=== PATIENT | male | born 1950 | race Caucasian/White ===

== ENCOUNTER 2022-01-14 12:22 | Outpatient (CLI) | payer MEDICARE ==
[2022-01-12 13:10] LABS: ALBUMIN 3.7 G/DL (3.4-5.0); ANION GAP 10 (8-16); BLOOD UREA NITROGEN 16 MG/DL (7-18); BUN/CREATININE RATIO 18.4 (5.4-32.0); CALCIUM 8.4 MG/DL (8.5-10.1); CHLORIDE 106 MMOL/L (99-107); CREATININE 0.87 MG/DL (0.60-1.10); GLUCOSE 99 MG/DL (70-104); SODIUM 145 MMOL/L (135-145); TOTAL CARBON DIOXIDE 29.2 MMOL/L (24-32); eGFR 87 ML/MIN
[2022-01-14] MEDS ORDERED: GADOTERATE MEGLUMINE 7.5 MMOL/15 ML VIAL IV ONE (14:40)
== END 2022-01-14 23:59 | disposition home or self-care (01) ==
LOC: RAD 12:22
PROVIDERS: ATTEND Psychiatry & Neurology Neurology
DX: I67.82 Cerebral ischemia (principal); G31.89 Other specified degenerative diseases of nervous system; D18.09 Hemangioma of other sites; M25.78 Osteophyte, vertebrae; G04.90 Encephalitis and encephalomyelitis, unspecified; G13.0 Paraneoplastic neuromyopathy and neuropathy; F03.90 Unspecified dementia, unspecified severity, without behavioral disturbance, psychotic disturbance, mood disturbance, and anxiety; R20.0 Anesthesia of skin
CPT/HCPCS: 36415; 70553; 72156; 80048; A9575

== ENCOUNTER 2023-11-03 08:54 | Day surgery (SDC) | payer MEDICARE, OTHER ==
[~2023-11-03] VITALS: Ht 177.8 cm; Wt 107.6 kg
[2023-11-03] VITALS (8 sets, daily range): BP systolic 124–152; BP diastolic 56–96; PULSE 62–80; RESP 14–15; O2SAT 93–97
[2023-11-03] MEDS ORDERED: FLO0.4C PO (10:28)
[2023-11-03] MEDS ORDERED: VENL75CA61 PO (10:28)
[2023-11-03] MEDS ORDERED: GABA300T25 PO (10:28)
[2023-11-03] MEDS ORDERED: DONE-46 PO (10:28)
[2023-11-03] MEDS ORDERED: MEMA21CA PO (10:28)
== END 2023-11-03 15:10 | disposition home or self-care (01) ==
LOC: SSTAY O 08:54
PROVIDERS: ATTEND Psychiatry & Neurology Neurology
DX: G04.90 Encephalitis and encephalomyelitis, unspecified (principal); F03.90 Unspecified dementia, unspecified severity, without behavioral disturbance, psychotic disturbance, mood disturbance, and anxiety; G47.33 Obstructive sleep apnea (adult) (pediatric); G47.9 Sleep disorder, unspecified; G13.0 Paraneoplastic neuromyopathy and neuropathy; Z85.118 Personal history of other malignant neoplasm of bronchus and lung; Z98.890 Other specified postprocedural states; Z79.899 Other long term (current) drug therapy; Z82.49 Family history of ischemic heart disease and other diseases of the circulatory system; Z80.7 Family history of other malignant neoplasms of lymphoid, hematopoietic and related tissues
CPT/HCPCS: 62328; 77002